=== PATIENT | male | born 1990 | race African-American/Black ===

== ENCOUNTER 2020-11-24 12:23 | Emergency (ER) | payer OTHER ==
[~2020-11-24] VITALS: Ht 167.6 cm; Wt 53.0 kg
[2020-11-24] MEDS ORDERED: ACETAMINOPHEN 325MG TABLET PO ONE (14:15)
[2020-11-24] MEDS ORDERED: IBUP-2029 MT (15:05)
[2020-11-24 15:34] VITALS: BP 133/79
== END 2020-11-24 15:34 | disposition home or self-care (01) ==
LOC: ER 13:50
DX: S63.91XA Sprain of unspecified part of right wrist and hand, initial encounter (principal); M19.041 Primary osteoarthritis, right hand; Z91.09 Other allergy status, other than to drugs and biological substances; Z91.81 History of falling; X50.0XXA Overexertion from strenuous movement or load, initial encounter; Y93.89 Activity, other specified; Y92.098 Other place in other non-institutional residence as the place of occurrence of the external cause
CPT/HCPCS: 29125; 73130; 99283